=== PATIENT | male | born 2005 | race Caucasian/White ===

== ENCOUNTER 2024-09-16 15:10 | Emergency (ER) | payer SELFPAY ==
[~2024-09-16] VITALS: Ht 180.3 cm; Wt 61.7 kg
[2024-09-16 15:17] VITALS: PULSE 65; RESP 17; TEMP 98.4; O2SAT 100
[2024-09-16] MEDS ORDERED: AMOXICILLIN500 MG PO (15:26)
== END 2024-09-16 15:31 | disposition home or self-care (01) ==
LOC: ER 15:24
DX: R07.0 Pain in throat (principal); J02.0 Streptococcal pharyngitis
CPT/HCPCS: 99282

== ENCOUNTER 2024-10-19 21:12 | Emergency (ER) | payer SELFPAY ==
[~2024-10-19] VITALS: Ht 180.3 cm; Wt 61.7 kg
[~2024-10-19 21:12] MED LIST: AMOXICILLIN500 MG PO
[2024-10-19 21:31] VITALS: TEMP 98.4
[2024-10-19] MEDS: SODIUM CHLORIDE 0.9% 1000ML 1,000 ML IV ONE ×2 (21:36→21:44)
[2024-10-19] MEDS: ONDANSETRON HCL INJ 2MG/ML 2ML 2 MG/ML VIAL IV STA (21:36)
[2024-10-19] MEDS: DICYCLOMINE HCL 20 MG/2 ML VIAL IM ONE (21:37)
[2024-10-19] MEDS ORDERED: SODIUM CHLORIDE 0.9% 1000ML 1,000 ML ONE (21:37)
[2024-10-19 21:44] LABS: BASOPHILS % 0.1 % (0.0-1.0); EOSINOPHILS % 0.2 % (0.0-6.0); HEMATOCRIT 49.9 % (38.2-49.6); HEMOGLOBIN 16.5 g/dL (14.0-18.0); LYMPHOCYTES # (AUTO) 0.3 (1.0-3.2); LYMPHOCYTES % 2.3 % (18.0-39.1); MEAN CORPUSCULAR HEMOGLOBIN 29.7 pg (28-32); MEAN CORPUSCULAR HGB CONC 33.1 g/dL (31-35); MEAN CORPUSCULAR VOLUME 89.9 fL (81-99); MONOCYTES # (AUTO) 0.6 (0.2-0.8); MONOCYTES % 5.4 % (4.4-11.3); NEUTROPHILS # (AUTO) 10.5 (2.1-6.9); NEUTROPHILS % 91.7 % (38.7-80.0); PLATELET COUNT 190 x10e3/uL (140-360); RED BLOOD COUNT 5.55 x10e6/uL (4.3-5.7); RED CELL DISTRIBUTION WIDTH 12.2 % (11.7-14.4); WHITE BLOOD COUNT 11.41 x10e3/uL (4.8-10.8)
[2024-10-19 22:04] LABS: ALBUMIN 4.9 g/dL (3.5-5.0); ALBUMIN/GLOBULIN RATIO 1.6 (0.8-2.0); ANION GAP 18.7 mmol/L (8-16); BILIRUBIN,TOTAL 1.5 mg/dL (0.2-1.2); CALCIUM 10.3 mg/dL (8.4-10.2); CREATININE, SERUM 1.12 mg/dL (0.72-1.25); POTASSIUM 3.7 mmol/L (3.5-5.1); TOTAL PROTEIN 7.9 g/dL (6.5-8.1)
[2024-10-19] MEDS ORDERED: ONDANSETRON ODT4 MG SL (23:40)
[2024-10-19] MEDS ORDERED: PANTOPRAZOLE SO40 MG PO (23:40)
[2024-10-19] MEDS ORDERED: DICYCLOMINE HCL20 MG PO (23:40)
[2024-10-19 23:50] VITALS: PULSE 97; RESP 18; O2SAT 100
== END 2024-10-20 00:01 | disposition home or self-care (01) ==
LOC: ER 21:32
DX: R11.2 Nausea with vomiting, unspecified (principal); A08.4 Viral intestinal infection, unspecified; R10.9 Unspecified abdominal pain
CPT/HCPCS: 36415; 80053; 83690; 85025; 99283; J0500; J2405; J7030